=== PATIENT | male | born 1985 | race Caucasian/White ===

== ENCOUNTER 2023-11-27 10:19 | Inpatient (IN) ==
[2023-11-27] MEDS: SODIUM CHLORIDE 0.9% 1,000 ML IV ONE (11:00)
[2023-11-27] MEDS: METOCLOPRAMIDE HCL INJ 5 MG/ML 2 ML VIAL IV ONE (11:14)
[2023-11-27] MEDS: diazePAM 5 MG/ML 10ML VIAL IV STA ×3 (11:14→15:22)
[2023-11-27 11:23] LABS: Basophils # (auto) 0.01 K/uL (0.00-0.20); Basophils % (auto) 0.1 %; Eosinophils # (auto) 0.05 K/uL (0.00-0.50); Eosinophils % (auto) 0.4 %; Hemoglobin 13.3 g/dl (14.0-18.0); Immature Granulocytes # (auto) 0.04 K/uL (0.01-0.20); Immature Granulocytes % (auto) 0.3 %; Lymphocytes # (auto) 1.04 K/uL (1.20-3.40); Mean Corpuscular Hemoglobin 27.1 pg (25.0-34.0); Mean Corpuscular Hgb Conc 34.1 g/dL (32.0-36.0); Mean Corpuscular Volume 79.4 fL (80.0-100.0); Mean Platelet Volume 9.4 fL (9.4-12.4); Monocytes # (auto) 0.54 K/uL (0.11-0.59); Monocytes % (auto) 4.2 %; Neutrophils # (auto) 11.26 K/uL (1.40-6.50); Platelet Count 448 K/uL (130-400); RDW Coefficient of Variation 13.4 % (11.5-14.5); RDW Standard Deviation 38.4 fL (36.4-46.3); Red Blood Count 4.91 M/uL (4.70-6.10); White Blood Count 12.94 K/ul (4.8-10.8)
--- NOTE | 2023-11-27 11:31 | Emergency Department Note ---
Impression & Plan Alcohol withdrawal syndrome, Alcohol abuse, Substance abuse, Opiate withdrawal, Urine retention, Hypokalemia, Acute GI bleeding ED Provider Note ED Provider Note NAME: EUGENIO [id number] JORDANA AGE:38 SEX: Male : 1985 ARRIVES VIA: EMS INFORMANT: Patient ED PROVIDER(s): Deborah Bettencourt DO CHIEF COMPLAINT: alcohol withdrawal HPI: This is a 38-year-old male brought in from a local correctional facility due to concern for evolving symptoms of alcohol withdrawal and opiate withdrawal. Patient states he drinks about 1/5 of vodka daily and has been doing so for the last 3 months. He also uses approximately 16 bags of fentanyl daily which she has also been doing for the last 3 months. He says overall he has been abusing alcohol and other recreational drugs for many years. He states he had previously made arrangements to go to drug and alcohol rehab tomorrow, however he was picked up from his home by police due to other legal matters yesterday. He states his last drink of alcohol last use of fentanyl was yesterday around 1:30 PM. He states by about 430 to 5 PM he began having withdrawal related symptoms including sweating, weakness, nausea and vomiting. Patient states throughout the evening he began to feel worse. He had recurrent episodes of vomiting which did include blood. He states he has noticed dark stools which she is suspicious of blood additionally. No prior history of known GI bleed, he denies any prior EGD or colonoscopy. He denies fevers or chills. He states he does have abdominal pain and feels shaky. He states he has previously been hospitalized for alcohol withdrawal and has had alcohol withdrawal related seizures. He states the facility gave him 5 mg of Valium, Zofran, and something else for his nausea and vomiting. He states he does not have to use a daily acid reducing stomach medication and has no known history of PUD. PAST MEDICAL HISTORY:See Below PAST SURGICAL HISTORY:See Below FAMILY HISTORY:See Below SOCIAL HISTORY:See Below HOME MEDICATIONS:See Below ALLERGIES:See Below VITALS:See Below PHYSICAL EXAMINATION: GENERAL: alert, ill appearing, thin body habitus, moderate distress, diaphoretic and anxious appearing EYE EXAM: normal conjunctiva, PERRL and EOM's grossly intact OROPHARYNX: no exudate, no erythema, lips, buccal mucosa, and tongue normal and mucous membranes are dry NECK: supple, no nuchal rigidity, no adenopathy, non-tender LUNGS: Clear to auscultation. Normal chest wall mechanics, no w/r/r HEART: no murmurs, S1 normal and S2 normal ABDOMEN: abdomen soft, generalized abdominal discomfort with palpation, normo- active bowel sounds, no masses, no rebound or guarding. BACK: Back is symmetrical on inspection and there is no deformity, no midline tenderness, no CVA tenderness. SKIN: no rashes, petechiae, orbruising UPPER EXTREMITIES: upper extremities are grossly normal. FROM, nml pulses b/l. LOWER EXTREMITIES: No pitting edema. FROM, nml pulses b/l. NEURO EXAM: Normal sensorium, cranial nerves II-XII grossly intact, normal speech, no facial droop,nogross weakness of arms, no gross weakness of legs. Gross sensation intact. No ataxia. Tremors noted. Vital Signs: reviewed and remarkable Differential Diagnosis: Alcohol withdrawal, opiate withdrawal, delirium tremens, dehydration, electrolyte abnormality, dysrhythmia, GI bleed, colitis, viral syndrome, perforation, mesenteric ischemia, pneumonia, aspiration, as well as others were considered MEDICAL DECISION MAKING: This is a 38-year-old male presents emergency department with staff from correctional facility due to concern for evolving alcohol and opiate withdrawal but was unable to be managed by staff there following several medications. Patient admits to prior significant history of alcohol withdrawal requiring hospitalization including prior seizures. He was noted to be tachycardic on arrival and ill-appearing with significant diaphoresis and tremors. Labs drawn and sent, IV established, EKG and chest ray performed at bedside interpreted me and patient monitored on telemetry. Patient started on IV fluids as he did appear clinically dehydrated and reported vomiting for the last 24 hours. Patient started on Protonix bolus and drip due to reported hematemesis, and increased risk given alcohol abuse. Type and screen added as a precaution. Patient given IV magnesium due to prolonged QTc noted on the EKG. Banana bag was added. Patient given 10 mg IV Valium to help with withdrawal symptoms, as well as IV Rocephin as a precaution. Patient given IV Reglan and IV Tylenol additionally for ongoing nausea and pain. Patient sent for CT of the abdomen and pelvis as a precaution. Patient transition to lactated Ringer's following first bag of normal saline. Patient did have an episode of diarrhea here which was sent for stool culture and C. difficile. Patient required additional IV Valium totaling 30 mg. Patient had been unable to provide urine specimen yet despite IV fluids. Bladder scan showed greater than 500 mL. Saldana catheter placed and urinalysis sent. Due to persistent symptoms of alcohol withdrawal, concern for GI bleed and dehydration, and risks associated with alcohol withdrawal and opiate withdrawal, case discussed with the hospitalist team for additional evaluation and management. Consultation(s): 1445: Discussed with Dr. Covarrubias, [facility] hospitalist team, for additional evaluation and management. ER Treatment Provided: See below Diagnostics Interpreted By Me: -ECG: Normal sinus at 83, normal axis, normal QRS, prolonged QTc, nonspecific ST/T wave changes -Cardiac Monitoring: An order was placed for continuous cardiac monitoring. The monitor shows a rate of 102 with sinus tachycardia rhythm. -Laboratory studies: As stated above and show below. -Imaging studies: X-ray Chest: A single view study of the chest was reviewed and was negative for cardiomegaly, focal infiltrate, effusion, pulmonary edema, or wide mediastinum. Triage Nursing Note Reviewed Prior/Outside Records Reviewed Critical Care: Critical care of 56 min performed to assess and manage high likelihood of life- threatening alcohol withdrawal and opiate withdrawal, involving labs and imaging performed with assessment to evaluate alcohol and opiate withdrawal diagnosis with frequent reassessment. This time includes bedside time, treatment discussions with patient/family/consultants, documentation time and excludes procedure time. Past Med/Surg History Problem List (Updated 11/28/23 @ 15:30 by Deborah Bettencourt, ) Acute GI bleeding (Acute) Hypokalemia (Acute) Urine retention (Acute) Hematemesis Opiate withdrawal (Acute) Substance abuse (Acute) Alcohol abuse (Acute) Alcohol withdrawal syndrome (Acute) Medical History Depression (01/22/12) Surgical History Hx of cervical spine surgery Social History Smoking Status: Never smoker Hx Alcohol Use: Yes Hx Substance Use: Yes Substance Use Type Other:: FENTANYL Preferred Language: Kittitian Communication Ability: Effective Cake Stripper Required: No Beliefs That Will Affect Care: None Current Living Situation Comment: [facility] Feels Safe at Home: Yes Safety Concerns: Feels Safe At This Time Assistive Devices: None Allergies Allergies Allergy/AdvReac Type Severity Reaction Status Date / Time Sulfa (Sulfonamide Allergy Unknown Verified 02/16/23 08:35 Antibiotics) Home Meds Home Medications Medication Instructions Recorded Confirmed clonazepam 2 mg tablet See Rx Instructions .Route .COMPLEX 11/27/23 11/27/23 clonidine HCl 0.1 mg tablet See Rx Instructions .Route .COMPLEX 11/27/23 11/27/23 folic acid 1 mg tablet 1 mg PO DAILY 11/27/23 11/27/23 loperamide 2 mg capsule 2 mg PO TID PRN Diarrhea 11/27/23 11/27/23 magnesium oxide 400 mg PO DAILY 11/27/23 11/27/23 mirtazapine 15 mg tablet 0 mg PO HS 11/27/23 11/27/23 multivitamin 1 tab PO DAILY 11/27/23 11/27/23 ondansetron 4 mg disintegrating 4 mg translingual TID PRN Nausea 11/27/23 11/27/23 tablet And Vomiting ondansetron HCl (PF) 4 mg/2 mL 4 mg IV TID PRN Nausea And Vomiting 11/27/23 11/27/23 injection solution vitamin B complex 1 tab PO DAILY 11/27/23 11/27/23 Results & Data (ED) Vital Signs Vital Signs - 24 hr 11/27/23 10:28 11/27/23 10:32 11/27/23 11:54 Temperature 37 C Temperature Source Oral Pulse Rate 88 86 103 H Pulse Rate from SpO2 Sensor 102 H Respiratory Rate 20 30 H Respiratory Effort / Characteristics Non-Labored Spontaneous Respiratory Depth Normal Blood Pressure 153/89 H Blood Pressure Mean 110 Blood Pressure Position Sitting Pulse Oximetry 100 98 Oxygen Delivery Method Room Air Sepsis Recent Fever Within 48 Hours No Sepsis New/Unexplained Change in Mental Status No Sepsis Action Taken by Nursing No Action Required 11/27/23 12:00 11/27/23 12:54 11/27/23 13:00 Temperature Temperature Source Pulse Rate 112 H Pulse Rate from SpO2 Sensor 104 H Respiratory Rate 33 H Respiratory Effort / Characteristics Respiratory Depth Blood Pressure 159/82 H 152/82 H Blood Pressure Mean 114 97 Blood Pressure Position Pulse Oximetry 97 Oxygen Delivery Method Sepsis Recent Fever Within 48 Hours Sepsis New/Unexplained Change in Mental Status Sepsis Action Taken by Nursing 11/27/23 14:00 11/27/23 14:28 Temperature 39.6 C H Temperature Source Oral Pulse Rate 95 H Pulse Rate from SpO2 Sensor Respiratory Rate Respiratory Effort / Characteristics Respiratory Depth Blood Pressure Blood Pressure Mean Blood Pressure Position Pulse Oximetry Oxygen Delivery Method Sepsis Recent Fever Within 48 Hours Sepsis New/Unexplained Change in Mental Status Sepsis Action Taken by Nursing Laboratory Data 11/28/23 06:39 11/28/23 06:39 Lab Results 11/27/23 11/27/23 11/27/23 Range/Units 10:35 12:05 12:07 WBC 12.94 H (4.8-10.8) K/ul RBC 4.91 (4.70-6.10) M/uL Hgb 13.3 L (14.0-18.0) g/dl Hct 39.0 L (42.0-52.0) % MCV 79.4 L (80.0-100.0) fL MCH 27.1 (25.0-34.0) pg MCHC 34.1 (32.0-36.0) g/dL RDW Std Deviation 38.4 (36.4-46.3) fL RDW Coeff of Casey 13.4 (11.5-14.5) % Plt Count 448 H (130-400) K/uL MPV 9.4 (9.4-12.4) fL Immature Gran % (Auto) 0.3 % Neut % (Auto) 87.0 % Lymph % (Auto) 8.0 % [place] % (Auto) 4.2 % Eos % (Auto) 0.4 % Baso % (Auto) 0.1 % Neut # (Auto) 11.26 H (1.40-6.50) K/uL Lymph # (Auto) 1.04 L (1.20-3.40) K/uL [place] # (Auto) 0.54 (0.11-0.59) K/uL Eos # (Auto) 0.05 (0.00-0.50) K/uL Baso # (Auto) 0.01 (0.00-0.20) K/uL Immature Gran # (Auto) 0.04 (0.01-0.20) K/uL PT 12.0 (9.0-12.0) Seconds INR 1.1 (0.9-1.1) Sodium 146 H (136-145) mmol/L Potassium 2.9 L (3.5-5.1) mmol/L Chloride 104 (98-107) mmol/L Carbon Dioxide 24 (21-32) mmol/L Anion Gap 18 H (3-11) BUN 14 (6-23) mg/dl Creatinine 0.88 (0.6-1.4) mg/dl Est Cr Clr Drug Dosing 100.1 ml/min Est GFR ( Amer) 126.3 ml/min Est GFR (Non-Af Amer) 109.0 ml/min BUN/Creatinine Ratio 15.9 (10-20) Glucose 149 H (70-99(Fasting)) mg/dl Calcium 10.3 (8.6-10.3) mg/dl Magnesium 2.0 (1.7-2.4) mg/dl Total Bilirubin 0.8 (0.2-1.0) mg/dl AST 19 (13-39) U/L ALT 47 (7-52) U/L Alkaline Phosphatase 62 (34-104) U/L Troponin I High Sens 42.7 H (0-20) pg/ml Total Protein 8.1 (6.0-8.3) gm/dl Albumin 4.9 (3.4-5.0) gm/dl Globulin 3.2 (2.5-4.0) gm/dl Albumin/Globulin Ratio 1.5 (0.9-2) Lipase 52 (11-82) U/L Procalcitonin 0.02 (0-0.5) ng/ml TSH 0.286 L (0.300-4.500) uIu/ml Free T4 1.26 (0.61-1.60) ng/dl Urine Color Urine Appearance (Clear) Urine pH (4.5-7.5) Ur Specific [place] (1.000-1.030) Urine Protein (Negative) Urine Glucose (UA) (Negative) Urine Ketones (Negative) Urine Blood (Negative) Urine Nitrite (Negative) Urine Bilirubin (Negative) Urine Urobilinogen (Negative) Ur Leukocyte Esterase (Negative) Urine WBC (Auto) (0-5) /hpf Urine RBC (Auto) (0-2) /hpf U Hyaline Cast (Auto) (0-2) /lpf U Epithel Cells (Auto) (0-2) /hpf Urine Bacteria (Auto) (None Seen) Stl C. diff Tox B Gene (Neg) Urine Opiates Screen (Neg) Ur Methadone, Qual (Neg) Urine Fentanyl Screen (Neg) Urine Barbiturates (Neg) Ur Phencyclidine (PCP) (Neg) U Amphetamin/Meth Scrn (Neg) MDMA (Ecstasy) Screen (Neg) U Benzodiazepines Scrn (Neg) Ur Cocaine Metabolite (Neg) U Marijuana (THC) Screen (Neg) Ethyl Alcohol mg/dL < 10.0 (<10.0) mg/dl SARS-CoV-2 (PCR) (Negative) Influenza Type A (PCR) (Neg) Influenza Type B (PCR) (Neg) RSV (RT-PCR) (Neg) Staphylococcus sp PCR (NotDetected) mecA/C-Methicil Resis Gene (NotDetected) Staph epidermidis (PCR) (NotDetected) Bld Cult ID Panel PCR (NotDetected) Blood Type A Positive Antibody Screen NEGATIVE 11/27/23 11/27/23 11/27/23 Range/Units 12:35 14:12 14:42 WBC (4.8-10.8) K/ul RBC (4.70-6.10) M/uL Hgb (14.0-18.0) g/dl Hct (42.0-52.0) % MCV (80.0-100.0) fL MCH (25.0-34.0) pg MCHC (32.0-36.0) g/dL RDW Std Deviation (36.4-46.3) fL RDW Coeff of Casey (11.5-14.5) % Plt Count (130-400) K/uL MPV (9.4-12.4) fL Immature Gran % (Auto) % Neut % (Auto) % Lymph % (Auto) % [place] % (Auto) % Eos % (Auto) % Baso % (Auto) % Neut # (Auto) (1.40-6.50) K/uL Lymph # (Auto) (1.20-3.40) K/uL [place] # (Auto) (0.11-0.59) K/uL Eos # (Auto) (0.00-0.50) K/uL Baso # (Auto) (0.00-0.20) K/uL Immature Gran # (Auto) (0.01-0.20) K/uL PT (9.0-12.0) Seconds INR (0.9-1.1) Sodium (136-145) mmol/L Potassium (3.5-5.1) mmol/L Chloride (98-107) mmol/L Carbon Dioxide (21-32) mmol/L Anion Gap (3-11) BUN (6-23) mg/dl Creatinine (0.6-1.4) mg/dl Est Cr Clr Drug Dosing ml/min Est GFR ( Amer) ml/min Est GFR (Non-Af Amer) ml/min BUN/Creatinine Ratio (10-20) Glucose (70-99(Fasting)) mg/dl Calcium (8.6-10.3) mg/dl Magnesium (1.7-2.4) mg/dl Total Bilirubin (0.2-1.0) mg/dl AST (13-39) U/L ALT (7-52) U/L Alkaline Phosphatase (34-104) U/L Troponin I High Sens (0-20) pg/ml Total Protein (6.0-8.3) gm/dl Albumin (3.4-5.0) gm/dl Globulin (2.5-4.0) gm/dl Albumin/Globulin Ratio (0.9-2) Lipase (11-82) U/L Procalcitonin (0-0.5) ng/ml TSH (0.300-4.500) uIu/ml Free T4 (0.61-1.60) ng/dl Urine Color Yellow Urine Appearance Clear (Clear) Urine pH 5.5 (4.5-7.5) Ur Specific [place] 1.037 H (1.000-1.030) Urine Protein Trace H (Negative) Urine Glucose (UA) Negative (Negative) Urine Ketones 4+ H (Negative) Urine Blood Negative (Negative) Urine Nitrite Negative (Negative) Urine Bilirubin Negative (Negative) Urine Urobilinogen Negative (Negative) Ur Leukocyte Esterase Negative (Negative) Urine WBC (Auto) 0-5 (0-5) /hpf Urine RBC (Auto) 0-2 (0-2) /hpf U Hyaline Cast (Auto) 11-20 H (0-2) /lpf U Epithel Cells (Auto) 0-2 (0-2) /hpf Urine Bacteria (Auto) None Seen (None Seen) Stl C. diff Tox B Gene Negative Cdiff Gene (Neg) Urine Opiates Screen Neg (Neg) Ur Methadone, Qual Neg (Neg) Urine Fentanyl Screen Pos H (Neg) Urine Barbiturates Neg (Neg) Ur Phencyclidine (PCP) Neg (Neg) U Amphetamin/Meth Scrn Neg (Neg) MDMA (Ecstasy) Screen Neg (Neg) U Benzodiazepines Scrn Pos H (Neg) Ur Cocaine Metabolite Neg (Neg) U Marijuana (THC) Screen Pos H (Neg) Ethyl Alcohol mg/dL (<10.0) mg/dl SARS-CoV-2 (PCR) NEGATIVE (Negative) Influenza Type A (PCR) Negative (Neg) Influenza Type B (PCR) Negative (Neg) RSV (RT-PCR) Negative (Neg) Staphylococcus sp PCR (NotDetected) mecA/C-Methicil Resis Gene (NotDetected) Staph epidermidis (PCR) (NotDetected) Bld Cult ID Panel PCR (NotDetected) Blood Type Antibody Screen 11/27/23 Range/Units 14:50 WBC (4.8-10.8) K/ul RBC (4.70-6.10) M/uL Hgb (14.0-18.0) g/dl Hct (42.0-52.0) % MCV (80.0-100.0) fL MCH (25.0-34.0) pg MCHC (32.0-36.0) g/dL RDW Std Deviation (36.4-46.3) fL RDW Coeff of Casey (11.5-14.5) % Plt Count (130-400) K/uL MPV (9.4-12.4) fL Immature Gran % (Auto) % Neut % (Auto) % Lymph % (Auto) % [place] % (Auto) % Eos % (Auto) % Baso % (Auto) % Neut # (Auto) (1.40-6.50) K/uL Lymph # (Auto) (1.20-3.40) K/uL [place] # (Auto) (0.11-0.59) K/uL Eos # (Auto) (0.00-0.50) K/uL Baso # (Auto) (0.00-0.20) K/uL Immature Gran # (Auto) (0.01-0.20) K/uL PT (9.0-12.0) Seconds INR (0.9-1.1) Sodium (136-145) mmol/L Potassium (3.5-5.1) mmol/L Chloride (98-107) mmol/L Carbon Dioxide (21-32) mmol/L Anion Gap (3-11) BUN (6-23) mg/dl Creatinine (0.6-1.4) mg/dl Est Cr Clr Drug Dosing ml/min Est GFR ( Amer) ml/min Est GFR (Non-Af Amer) ml/min BUN/Creatinine Ratio (10-20) Glucose (70-99(Fasting)) mg/dl Calcium (8.6-10.3) mg/dl Magnesium (1.7-2.4) mg/dl Total Bilirubin (0.2-1.0) mg/dl AST (13-39) U/L ALT (7-52) U/L Alkaline Phosphatase (34-104) U/L Troponin I High Sens (0-20) pg/ml Total Protein (6.0-8.3) gm/dl Albumin (3.4-5.0) gm/dl Globulin (2.5-4.0) gm/dl Albumin/Globulin Ratio (0.9-2) Lipase (11-82) U/L Procalcitonin (0-0.5) ng/ml TSH (0.300-4.500) uIu/ml Free T4 (0.61-1.60) ng/dl Urine Color Urine Appearance (Clear) Urine pH (4.5-7.5) Ur Specific [place] (1.000-1.030) Urine Protein (Negative) Urine Glucose (UA) (Negative) Urine Ketones (Negative) Urine Blood (Negative) Urine Nitrite (Negative) Urine Bilirubin (Negative) Urine Urobilinogen (Negative) Ur Leukocyte Esterase (Negative) Urine WBC (Auto) (0-5) /hpf Urine RBC (Auto) (0-2) /hpf U Hyaline Cast (Auto) (0-2) /lpf U Epithel Cells (Auto) (0-2) /hpf Urine Bacteria (Auto) (None Seen) Stl C. diff Tox B Gene (Neg) Urine Opiates Screen (Neg) Ur Methadone, Qual (Neg) Urine Fentanyl Screen (Neg) Urine Barbiturates (Neg) Ur Phencyclidine (PCP) (Neg) U Amphetamin/Meth Scrn (Neg) MDMA (Ecstasy) Screen (Neg) U Benzodiazepines Scrn (Neg) Ur Cocaine Metabolite (Neg) U Marijuana (THC) Screen (Neg) Ethyl Alcohol mg/dL (<10.0) mg/dl SARS-CoV-2 (PCR) (Negative) Influenza Type A (PCR) (Neg) Influenza Type B (PCR) (Neg) RSV (RT-PCR) (Neg) Staphylococcus sp PCR DETECTED A (NotDetected) mecA/C-Methicil Resis Gene DETECTED A (NotDetected) Staph epidermidis (PCR) DETECTED A (NotDetected) Bld Cult ID Panel PCR See PCR Comment (NotDetected) Blood Type Antibody Screen Administered Medications Clonidine HCl (Clonidine Hcl 0.1 Mg Tab) 0.1 mg PO TID DAVID; Taper Stop: 12/03/23 23:59 Last Admin: 11/28/23 14:41 Dose: 0.1 mg Documented By: Admin: 11/28/23 09:45 Dose: 0.1 mg Documented By: Admin: 11/27/23 21:08 Dose: Not Given Documented By: MORALES Folic Acid (Folic Acid 1 Mg Tab) 1 mg PO DAILY [facility] Stop: 12/28/23 08:59 Last Admin: 11/28/23 09:45 Dose: 1 mg Documented By: BILL Pantoprazole Sodium 40 mg/ (Dextrose) 100 mls @ 20 mls/hr IV Q5H [facility] Stop: 12/27/23 11:29 Last Admin: 11/28/23 11:29 Dose: 8 mg/hr, 20 mls/hr Documented By: Infusion: 11/28/23 11:04 Dose: Infused Documented By: Admin: 11/28/23 06:04 Dose: 8 mg/hr, 20 mls/hr Documented By: Infusion: 11/28/23 06:04 Dose: Infused Documented By: Admin: 11/28/23 01:26 Dose: 8 mg/hr, 20 mls/hr Documented By: Infusion: 11/28/23 01:26 Dose: Infused Documented By: Admin: 11/27/23 20:11 Dose: 8 mg/hr, 20 mls/hr Documented By: Infusion: 11/27/23 20:11 Dose: Infused Documented By: Admin: 11/27/23 16:36 Dose: 8 mg/hr, 20 mls/hr Documented By: Infusion: 11/27/23 16:36 Dose: Infused Documented By: Admin: 11/27/23 12:51 Dose: 8 mg/hr, 20 mls/hr Documented By: OLEG Thiamine HCl 100 mg/ Syringe 10 mls @ 2 mls/min IV QAM DAVID Stop: 12/28/23 08:59 Last Admin: 11/28/23 08:49 Dose: 2 mls/min Documented By: BILL Folic Acid 1 mg/ Syringe 10 mls @ 5 mls/min IV QAM DAVID Stop: 12/27/23 15:29 Last Admin: 11/28/23 10:04 Dose: 5 mls/min Documented By: Admin: 11/27/23 15:50 Dose: 5 mls/min Documented By: OLEG Potassium Chloride 40 meq/ (Dextrose/Sodium Chloride) 1,020 mls @ 125 mls/hr IV .Q8H10M DAVID Stop: 12/27/23 22:29 Last Infusion: 11/28/23 12:55 Dose: 125 mls/hr Documented By: Infusion: 11/28/23 08:46 Dose: 0 mls/hr Documented By: Admin: 11/28/23 07:31 Dose: 125 mls/hr Documented By: Infusion: 11/28/23 07:23 Dose: Infused Documented By: Admin: 11/27/23 23:13 Dose: 125 mls/hr Documented By: MORALES Lorazepam (Lorazepam 2 Mg/1 Ml Vial) 1 mg IV UD PRN; Protocol PRN Reason: EtOH Withdrawal AWSS Score 6,7 Stop: 12/27/23 15:00 Last Admin: 11/28/23 12:31 Dose: 1 mg Documented By: Admin: 11/28/23 10:04 Dose: 1 mg Documented By: Admin: 11/28/23 07:40 Dose: 1 mg Documented By: Admin: 11/28/23 01:10 Dose: 1 mg Documented By: Admin: 11/27/23 21:29 Dose: 1 mg Documented By: MORALES Lorazepam (Lorazepam 2 Mg/1 Ml Vial) 2 mg IV UD PRN; Protocol PRN Reason: EtOH Withdrawal AWSS Score 8,9 Stop: 12/27/23 15:00 Last Admin: 11/27/23 23:59 Dose: 2 mg Documented By: Admin: 11/27/23 16:36 Dose: 2 mg Documented By: OLEG Magnesium Oxide (Magnesium Oxide 400 Mg Tab) 400 mg PO DAILY DAVID Stop: 12/28/23 08:59 Last Admin: 11/28/23 09:46 Dose: 400 mg Documented By: BILL Mirtazapine (Mirtazapine Tab 15 Mg Tab) 15 mg PO [facility] Stop: 12/27/23 20:59 Last Admin: 11/27/23 21:08 Dose: Not Given Documented By: MORALES Vitamin B Complex (Vitamin B Complex Tab) 1 tab PO DAILY DAVID Stop: 12/28/23 08:59 Last Admin: 11/28/23 09:46 Dose: 1 tab Documented By: BILL Discontinued Medications Buprenorphine HCl (Buprenorphine Hcl 2 Mg Subl) 4 mg SL ONE STA Stop: 11/27/23 15:52 Last Admin: 11/27/23 16:39 Dose: Not Given Documented By: OLEG Buprenorphine/Naloxone (Buprenorphine/Naloxone 2/0.5mg Tab) 2 tab PO ONE STA Stop: 11/27/23 16:03 Last Admin: 11/27/23 16:36 Dose: 2 tab Documented By: OLEG Buprenorphine/Naloxone (Buprenorphine/Naloxone 2/0.5mg Tab) 1 tab PO ONE STA Stop: 11/27/23 18:28 Last Admin: 11/27/23 19:55 Dose: 1 tab Documented By: MORALES Buprenorphine/Naloxone (Buprenorphine/Naloxone 2/0.5mg Tab) 2 tab PO ONE ONE Stop: 11/28/23 14:01 Last Admin: 11/28/23 13:36 Dose: 2 tab Documented By: BILL Chlordiazepoxide HCl (Chlordiazepoxide Alcohol Withdrawl 50mg) 1 each PO NOW STA; Protocol Stop: 11/27/23 15:02 Last Admin: 11/27/23 16:39 Dose: Not Given Documented By: OLEG Chlordiazepoxide HCl (Chlordiazepoxide Hcl 25 Mg Cap) 50 mg PO 0600,1200,1600,2200 DAVID Stop: 11/28/23 12:01 Last Admin: 11/27/23 15:51 Dose: 50 mg Documented By: LOEG Diazepam (Diazepam 5 Mg/Ml 10ml Vial) 10 mg IV NOW STA Stop: 11/27/23 11:04 Last Admin: 11/27/23 11:14 Dose: 10 mg Documented By: RAMYA Diazepam (Diazepam 5 Mg/Ml 10ml Vial) 10 mg IV NOW STA Stop: 11/27/23 12:32 Last Admin: 11/27/23 12:51 Dose: 10 mg Documented By: OLEG Diazepam (Diazepam 5 Mg/Ml 10ml Vial) 10 mg IV NOW STA Stop: 11/27/23 14:16 Last Admin: 11/27/23 15:22 Dose: 10 mg Documented By: OLEG Sodium Chloride (Nss) 1,000 mls @ 999 mls/hr IV .Q1H1M ONE Stop: 11/27/23 12:03 Last Infusion: 11/27/23 11:39 Dose: Infused Documented By: Admin: 11/27/23 11:00 Dose: 999 mls/hr Documented By: RAMYA Multivitamins 10 ml/ Thiamine HCl 100 mg/ Folic Acid 1 mg/Sodium Chloride 1,011.2 mls @ 250 mls/hr IV .Q4H3M ONE Stop: 11/27/23 15:05 Last Infusion: 11/27/23 20:37 Dose: Infused Documented By: Admin: 11/27/23 12:11 Dose: 250 mls/hr Documented By: RAMYA Pantoprazole Sodium 80 mg/ (Dextrose) 120 mls @ 480 mls/hr IV NOW ONE Stop: 11/27/23 11:17 Last Infusion: 11/27/23 12:45 Dose: Infused Documented By: Admin: 11/27/23 12:30 Dose: 480 mls/hr Documented By: RAMYA Magnesium Sulfate/Dextrose (Magnesium Sulfate / D5w) 1 gm in 100 mls @ 100 mls/hr IV Q1H DAVID Stop: 11/27/23 13:05 Last Infusion: 11/27/23 12:30 Dose: Infused Documented By: Admin: 11/27/23 11:38 Dose: 100 mls/hr Documented By: Infusion: 11/27/23 11:38 Dose: Infused Documented By: Admin: 11/27/23 11:38 Dose: 100 mls/hr Documented By: OLEG Ceftriaxone Sodium (Rocephin) 2,000 mg in 50 mls @ 100 mls/hr IV NOW STA Stop: 11/27/23 11:34 Last Infusion: 11/27/23 15:15 Dose: Infused Documented By: Admin: 11/27/23 14:45 Dose: 100 mls/hr Documented By: OLEG Lactated Ringer's (Lr) 1,000 mls @ 999 mls/hr IV .Q1H1M ONE Stop: 11/27/23 13:31 Last Infusion: 11/27/23 14:04 Dose: Infused Documented By: Admin: 11/27/23 13:03 Dose: 999 mls/hr Documented By: OLEG Acetaminophen (Ofirmev) 1,000 mg in 100 mls @ 400 mls/hr IV NOW STA Stop: 11/27/23 14:22 Last Infusion: 11/27/23 14:59 Dose: Infused Documented By: Admin: 11/27/23 14:44 Dose: 400 mls/hr Documented By: OLEG Lactated Ringer's (Lr) 1,000 mls @ 125 mls/hr IV .Q8H DAVID Stop: 12/27/23 15:44 Last Infusion: 11/27/23 18:53 Dose: Infused Documented By: Admin: 11/27/23 15:53 Dose: 125 mls/hr Documented By: OLEG Potassium Chloride (K James / Wtr) 10 meq in 100 mls @ 100 mls/hr IV Q1H DAVID Stop: 11/27/23 22:59 Last Infusion: 11/27/23 23:38 Dose: Infused Documented By: Admin: 11/27/23 22:17 Dose: 100 mls/hr Documented By: Infusion: 11/27/23 22:16 Dose: Infused Documented By: Admin: 11/27/23 21:02 Dose: 100 mls/hr Documented By: Infusion: 11/27/23 20:56 Dose: Infused Documented By: Admin: 11/27/23 19:56 Dose: 100 mls/hr Documented By: Infusion: 11/27/23 19:55 Dose: Infused Documented By: Admin: 11/27/23 18:36 Dose: 100 mls/hr Documented By: CHARI Acetaminophen (Ofirmev) 1,000 mg in 100 mls @ 400 mls/hr IV NOW STA Stop: 11/28/23 03:48 Last Infusion: 11/28/23 04:14 Dose: Infused Documented By: Admin: 11/28/23 03:47 Dose: 400 mls/hr Documented By: MORALES Ceftriaxone Sodium (Rocephin) 2,000 mg in 50 mls @ 100 mls/hr IV Q24H DAVID Stop: 12/12/23 13:59 Last Infusion: 11/28/23 14:07 Dose: Infused Documented By: Admin: 11/28/23 13:36 Dose: 100 mls/hr Documented By: BILL Potassium Chloride (K James / Wtr) 10 meq in 100 mls @ 100 mls/hr IV Q1H DAVID Stop: 11/28/23 12:29 Last Infusion: 11/28/23 12:50 Dose: Infused Documented By: Admin: 11/28/23 11:47 Dose: 100 mls/hr Documented By: Infusion: 11/28/23 11:45 Dose: Infused Documented By: Admin: 11/28/23 10:45 Dose: 100 mls/hr Documented By: Infusion: 11/28/23 10:45 Dose: Infused Documented By: Admin: 11/28/23 09:46 Dose: 100 mls/hr Documented By: Infusion: 11/28/23 09:46 Dose: Infused Documented By: Admin: 11/28/23 08:46 Dose: 100 mls/hr Documented By: BILL Ioversol (Optiray 320 100ml) 92 ml IV ONCE ONE Stop: 11/27/23 13:34 Last Admin: 11/27/23 13:33 Dose: 92 ml Documented By: DALTON Lorazepam (Lorazepam 2 Mg/1 Ml Vial) 3 mg IV ONCE PRN; Protocol PRN Reason: EtOH Withdrawal AWSS Score 10+ Last Admin: 11/27/23 18:37 Dose: 3 mg Documented By: CHARI Lorazepam (Lorazepam 2 Mg/1 Ml Vial) 2 mg IV NOW STA Stop: 11/27/23 20:38 Last Admin: 11/27/23 20:51 Dose: 2 mg Documented By: MORALES Metoclopramide HCl (Metoclopramide Hcl Inj 5 Mg/Ml 2 Ml Vial) 5 mg IV ONE ONE Stop: 11/27/23 11:04 Last Admin: 11/27/23 11:14 Dose: 5 mg Documented By: RAMYA Pantoprazole Sodium (Pantoprazole Bolus/Drip) 1 each IV NOW STA Stop: 11/27/23 11:04 Last Admin: 11/27/23 13:10 Dose: Not Given Documented By: OLEG Potassium Chloride (Potassium Chloride Crtab 20 Meq Tabcr) 40 meq PO NOW STA Stop: 11/28/23 07:48 Last Admin: 11/28/23 09:35 Dose: Not Given Documented By: BILL Imaging Data Radiologist's Impression: Chest X-Ray 11/27/23 11:04 XR chest 1V portable CLINICAL HISTORY: Shortness of breath. COMPARISON STUDY: Chest radiograph November 07, 2022. FINDINGS: Postoperative findings within the cervical spine are incidentally noted. Lung volumes are normal. Lungs are clear. There is no pneumothorax or pleural effusion. Cardiac size is normal. Mediastinal contours are normal. There is no evidence for pulmonary edema. IMPRESSION: No acute cardiopulmonary findings. ACT 112: Negative or not required by law. Electronically signed by: Diego Conn M.D. 11/27/2023 11:54 AM Abdomen/Pelvis CT 11/27/23 13:15 CT OF THE ABDOMEN AND PELVIS WITH CONTRAST CLINICAL HISTORY: Abdominal pain. Hematemesis. COMPARISON STUDY: CT of the abdomen and pelvis December 14, [id number]. TECHNIQUE: Following IV administration of 92 mL of Optiray, axial images of the abdomen and pelvis were obtained from the lung bases to the proximal femurs. Images were reviewed in the axial, sagittal, and coronal planes. IV contrast was administered without complication. Automated exposure control was utilized for the study. A dose lowering technique was utilized adhering to the principles of ALARA. CT DOSE: 467.8 mGy.cm FINDINGS: Lung bases are unremarkable. No pneumatosis, free air or portal venous gas is present. Subcentimeter right hepatic lobe lesion is likely benign. There are no suspicious hepatic lesions. The spleen, adrenal glands, left kidney and pancreas are normal. There is no biliary or pancreatic ductal dilatation. There is no peripancreatic or pericholecystic infiltration. There is a 3 mm right renal calculus. There are no ureteral calculi. There is no hydronephrosis. The appendix is normal. There is no free fluid. The proximal jejunum is slightly dilated and fluid-filled. No transition point is identified. No bowel wall thickening. The stomach is also mildly fluid-filled. IMPRESSION: 1. Normal appendix. No bowel obstruction. No bowel wall thickening. 2. Mildly dilated fluid-filled jejunal and fluid-filled stomach. The findings could represent gastroenteritis. 3. 3 mm right renal calculus. No ureteral calculi. No hydronephrosis. ACT 112: Negative or not required by law. Electronically signed by: Diego Conn M.D. 11/27/2023 1:49 PM Discharge Plan Visit Data Chief Complaint: Alcohol Withdrawal Stated Complaint: DETOXING ED Provider: Deborah Bettencourt Discharge Problem: Alcohol withdrawal syndrome, Alcohol abuse, Substance abuse, Opiate withdrawal, Urine retention, Hypokalemia, Acute GI bleeding Patient Disposition: Admitted As Inpatient Discharge Instructions Interventions: ED Discharge Assessment Last Done: 11/27/23 17:24
[2023-11-27] MEDS: MAGNESIUM SULFATE / D5W 1 GM/100 ML BAG IV SCH (11:38)
[2023-11-27 11:55] LABS: INR 1.1 (0.9-1.1)
--- NOTE | 2023-11-27 11:55 | XRay Report ---
XR chest 1V portable CLINICAL HISTORY: Shortness of breath. COMPARISON STUDY: Chest radiograph November 07, 2022. FINDINGS: Postoperative findings within the cervical spine are incidentally noted. Lung volumes are n ormal. Lungs are clear. There is no pneumothorax or pleural effusion. Cardiac size is normal. Mediast inal contours are normal. There is no evidence for pulmonary edema. IMPRESSION: No acute cardiopulmonary findings. ACT 112: Negative or not required by law. Electronically signed by: Diego Conn M.D. 11/27/2023 11:54 AM
[2023-11-27] MEDS: MULTI-VITAMIN INFUSION 10 ML, THIAMINE HCL 100 MG, FOLIC ACID 1 MG in SODIUM CHLORIDE 0... IV ONE (12:11)
[2023-11-27] MEDS: PANTOprazole 80 MG in DEXTROSE 5% 100 ML IV ONE (12:30)
[2023-11-27] MEDS: PANTOprazole 40 MG in DEXTROSE 5% MINI-B 100 ML IV SCH (12:51)
[2023-11-27 12:57] LABS: Albumin Globulin Ratio 1.5 (0.9-2); Albumin Level 4.9 gm/dl (3.4-5.0); BUN Creatinine Ratio 15.9 (10-20); Bilirubin,Total 0.8 mg/dl (0.2-1.0); Calcium 10.3 mg/dl (8.6-10.3); Creatinine Clr Calc Pharmacy 100.1 ml/min; Est GFR (African American) 126.3 ml/min; Globulin 3.2 gm/dl (2.5-4.0); Potassium 2.9 mmol/L (3.5-5.1); Total Protein 8.1 gm/dl (6.0-8.3)
[2023-11-27 13:00] LABS: Troponin I High Sensitivity 42.7 pg/ml (0-20)
[2023-11-27] MEDS: LACTATED RINGER'S 1,000 ML IV ONE (13:03)
[2023-11-27 13:07] LABS: Thyroid Stimulating Hormone 0.286 uIu/ml (0.300-4.500)
[2023-11-27] MEDS: PANTOPRAZOLE BOLUS/DRIP IV STA (13:10)
[2023-11-27] MEDS: OPTIRAY 320 100ml IV ONE (13:33)
[2023-11-27 13:42] LABS: T4 Free Thyroxine 1.26 ng/dl (0.61-1.60)
--- NOTE | 2023-11-27 13:51 | CT Scan Report ---
CT OF THE ABDOMEN AND PELVIS WITH CONTRAST CLINICAL HISTORY: Abdominal pain. Hematemesis. COMPARISON STUDY: CT of the abdomen and pelvis December 14, [id number]. TECHNIQUE: Following IV administration of 92 mL of Optiray, axial images of the abdomen and pelvis we re obtained from the lung bases to the proximal femurs. Images were reviewed in the axial, sagittal, and coronal planes. IV contrast was administered without complication. Automated exposure control wa s utilized for the study. A dose lowering technique was utilized adhering to the principles of ALARA . CT DOSE: 467.8 mGy.cm FINDINGS: Lung bases are unremarkable. No pneumatosis, free air or portal venous gas is present. Subc entimeter right hepatic lobe lesion is likely benign. There are no suspicious hepatic lesions. The sp shoaib, adrenal glands, left kidney and pancreas are normal. There is no biliary or pancreatic ductal d ilatation. There is no peripancreatic or pericholecystic infiltration. There is a 3 mm right renal ca lculus. There are no ureteral calculi. There is no hydronephrosis. The appendix is normal. There is n o free fluid. The proximal jejunum is slightly dilated and fluid-filled. No transition point is ident ified. No bowel wall thickening. The stomach is also mildly fluid-filled. IMPRESSION: 1. Normal appendix. No bowel obstruction. No bowel wall thickening. 2. Mildly dilated fluid-filled jejunal and fluid-filled stomach. The findings could represent gastroe nteritis. 3. 3 mm right renal calculus. No ureteral calculi. No hydronephrosis. ACT 112: Negative or not required by law. Electronically signed by: Diego Conn M.D. 11/27/2023 1:49 PM
[2023-11-27 14:05] LABS: Influenza A virus by PCR Negative (Neg); Influenza B virus by PCR Negative (Neg); RSV by PCR Negative (Neg); SARS CoV2 RNA(COVID-19) Ceph NEGATIVE (Negative)
[2023-11-27] MEDS: ACETAMINOPHEN 1,000 MG/100 ML VIAL IV STA (14:44)
[2023-11-27] MEDS: cefTRIAXone SODIUM 2,000 MG/50 ML BAG IV STA (14:45)
--- NOTE | 2023-11-27 14:45 | Electrocardiogram Report ---
Test Reason : Blood Pressure : */* mmHG Vent. Rate : 83 BPM Atrial Rate : 83 BPM P-R Int : 114 ms QRS Dur : 86 ms QT Int : 444 ms P-R-T Axes : 71 80 50 degrees QTcB Int : 521 ms Normal sinus rhythm Left atrial enlargement Diffuse Nonspecific ST abnormality Prolonged QT Abnormal ECG When compared with ECG of 16-Feb-2023 07:47, Nonspecific ST abnormality now present QT has lengthened Confirmed by Raza Holman ([id number]) on 11/27/2023 2:44:36 PM Referred By: [facility] Confirmed By: Raza Holman
[2023-11-27] MEDS ORDERED: Ativan IV Alcohol Withdrawal--Active Protocol IV PRN (15:01)
[2023-11-27 15:16] LABS: Appearance Urine Clear (Clear); Bacteria Urine Automated None Seen (None Seen); Bilirubin Urine Negative (Negative); Blood Urine Negative (Negative); Color Urine Yellow; Epithelial Cell Urine Auto 0-2 /hpf (0-2); Glucose Urine UA Negative (Negative); Ketones Urine 4+ (Negative); Leukocyte Esterase Urine Negative (Negative); Nitrite Urine Negative (Negative); Protein Urine Trace (Negative); RBC Urine Automated 0-2 /hpf (0-2); Specific Gravity Urine 1.037 (1.000-1.030); Urobilinogen Urine Negative (Negative); WBC Urine Automated 0-5 /hpf (0-5); pH Urine 5.5 (4.5-7.5)
--- NOTE | 2023-11-27 15:32 | History & Physical Report ---
Date of Service November 27, 2023 Assessment & Plan (1) Opiate withdrawal: Plan: COWS 19 on admission. He is also going through alcohol withdrawal but given lacrimation, yawning, abdominal pain and diarrhea suspect a lot of his symptoms are opiate withdrawal [facility] Traditional buprenorphine initiation protocol - start with buprenorphine/naloxone 4/1mg, will recheck for ongoing withd Adjuvant therapy with clonidine and ondansetron for nausea IV fluids (2) Alcohol withdrawal syndrome: Plan: Lorazepam 1-3mg IV PRN, no Librium or phenobarbital due to concurrent opiate withdrawal (3) Depression: Plan: Continue mirtazapine 15mg PO HS (4) Hematemesis: Plan: IV pantoprazole bolus and drip, trend H&H NPO (5) Urine retention: Plan: Suspect due to withdrawal Saldana catheter placed on admission Will defer tamsulosin as likely to pass without this after he goes through withdrawal (6) Hypokalemia: Plan: Replace in IV fluids and recheck in AM Plan VTE Prophylaxis - low risk Diet - NPO Disposition - admit to PCU Admission and Anticipated Discharge Date Admission Date: November 27, 2023 History of Present Illness Chief Complaint: Opiate and alcohol withdrawal Primary Care Provider: [facility] Declan Cordova is a 38 year old male who presents to the ER after being arrested yesterday. Today he started going through withdrawal with history of seizures. He has tremors, became anxious, severe generalized abdominal pain, headache, difficulty urinating, sweating, diarrhea, nausea, vomiting and hematemesis. Difficult to get a full history from the patient as going through withdrawal at this time and only sometimes answering my questions. He reports taking mirtazapine, ondansetron and clomiphene prior he medications list from the [facility]. The clonidine and clonazepam are what the [facility] had prescribed for withdrawal but he is unsure if he took any yet. Per report he was given 5mg Valium and Zofran prior to arrival in the ER. He notes prior use of Suboxone has helped with withdrawals in the past. He was drinking a 5th of vodka a day and snorting 16 bags of Fentanyl a day for the last 3 months, last use was 1pm yesterday. No urine symptoms other than retention. No respiratory symptoms. Abdominal pain is chronic and actually improved since he has had medications in the ER. He reports hematemesis was coffee ground - none since he arrived in the ER. Allergies Allergy/AdvReac Type Severity Reaction Status Date / Time Sulfa (Sulfonamide Allergy Unknown Verified 02/16/23 08:35 Antibiotics) Home Medications Medication Instructions Recorded Confirmed Type clonazepam 2 mg tablet See Rx Instructions .Route .COMPLEX 11/27/23 11/27/23 History clonidine HCl 0.1 mg tablet See Rx Instructions .Route .COMPLEX 11/27/23 11/27/23 History folic acid 1 mg tablet 1 mg PO DAILY 11/27/23 11/27/23 History loperamide 2 mg capsule 2 mg PO TID PRN Diarrhea 11/27/23 11/27/23 History magnesium oxide 400 mg PO DAILY 11/27/23 11/27/23 History mirtazapine 15 mg tablet 0 mg PO HS 11/27/23 11/27/23 History multivitamin 1 tab PO DAILY 11/27/23 11/27/23 History ondansetron 4 mg disintegrating 4 mg translingual TID PRN Nausea 11/27/23 11/27/23 History tablet And Vomiting ondansetron HCl (PF) 4 mg/2 mL 4 mg IV TID PRN Nausea And Vomiting 11/27/23 11/27/23 History injection solution vitamin B complex 1 tab PO DAILY 11/27/23 11/27/23 History Past Med/Surg History Problem List (Updated 11/28/23 @ 06:30 by Jose Alberto Covarrubias MD) Hypokalemia Urine retention Hematemesis Opiate withdrawal Substance abuse (Acute) Alcohol abuse (Acute) Alcohol withdrawal syndrome (Acute) Medical History Depression (01/22/12) Surgical History Hx of cervical spine surgery Social History Smoking Status: Never smoker Hx Alcohol Use: Yes Hx Substance Use: Yes Substance Use Type Other:: FENTANYL Preferred Language: [place] Intern Retail Required: No Beliefs That Will Affect Care: None Current Living Situation Comment: [facility] Feels Safe at Home: Yes Safety Concerns: Feels Safe At This Time Review of Systems Review of Systems: All systems reviewed & are unremarkable except as noted in HPI & below Physical Exam Constitutional: well developed and + acute distress (agitated); + not well nourished Eyes: PERRL (dilated); no conjunctival abnormality ENMT: external ear and nose normal, oropharynx normal Respiratory: normal respiratory effort, lungs clear to auscultation Cardiovascular: Rate/Rhythm: regular rhythm and + tachycardic Heart Sounds: no murmur Extremities: normal capillary refill; no calf tenderness and no pedal edema Gastrointestinal (Abdomen): Inspection/Auscultation: abdomen normal to inspe ction; abdomen not distended Percussion/Palpation: + abdomen tender (generalized) and abdomen soft; no guarding and abdomen not rigid Musculoskeletal: no cyanosis or clubbing, extremities motor strength 5/5 Skin: no rashes, warm and dry Neurologic: moves all extremities and awake; no focal motor deficits and not confused Speech / Cognition: normal speech Motor/Sensory: no tremor and no pronator drift Cranial Nerves: PERRL, EOM intact bilaterally, normal facial strength, able to rotate head bilaterally, able to elevate shoulders bilaterally, no nystagmus and symmetric palate elevation Psychiatric: Orientation: alert, oriented to person, oriented to place and oriented to time Results & Data Results & Data Vital Signs (Past 12 Hours) Vital Signs Temp Pulse Resp BP Pulse Ox O2 Del Method 11/27/23 14:28 95 H 11/27/23 14:00 39.6 C H 11/27/23 13:00 152/82 H 11/27/23 12:54 112 H 33 H 97 11/27/23 12:00 159/82 H 11/27/23 11:54 103 H 30 H 98 11/27/23 10:32 86 11/27/23 10:28 37 C 88 20 153/89 H 100 Room Air Laboratory Results Abnormal lab results 11/27/23 11/27/23 Range/Units 10:35 14:42 WBC 12.94 H (4.8-10.8) K/ul Hgb 13.3 L (14.0-18.0) g/dl Hct 39.0 L (42.0-52.0) % MCV 79.4 L (80.0-100.0) fL Plt Count 448 H (130-400) K/uL Neut # (Auto) 11.26 H (1.40-6.50) K/uL Lymph # (Auto) 1.04 L (1.20-3.40) K/uL Sodium 146 H (136-145) mmol/L Potassium 2.9 L (3.5-5.1) mmol/L Anion Gap 18 H (3-11) Glucose 149 H (70-99(Fasting)) mg/dl Troponin I High Sens 42.7 H (0-20) pg/ml TSH 0.286 L (0.300-4.500) uIu/ml Ur Specific Buena 1.037 H (1.000-1.030) Urine Protein Trace H (Negative) Urine Ketones 4+ H (Negative) U Hyaline Cast (Auto) 11-20 H (0-2) /lpf Diagnostic Findings XR chest 1V portable CLINICAL HISTORY: Shortness of breath. COMPARISON STUDY: Chest radiograph November 07, 2022. FINDINGS: Postoperative findings within the cervical spine are incidentally noted. Lung volumes are normal. Lungs are clear. There is no pneumothorax or pleural effusion. Cardiac size is normal. Mediastinal contours are normal. There is no evidence for pulmonary edema. IMPRESSION: No acute cardiopulmonary findings. CT OF THE ABDOMEN AND PELVIS WITH CONTRAST CLINICAL HISTORY: Abdominal pain. Hematemesis. COMPARISON STUDY: CT of the abdomen and pelvis December 14, 20112022. TECHNIQUE: Following IV administration of 92 mL of Optiray, axial images of the abdomen and pelvis were obtained from the lung bases to the proximal femurs. Images were reviewed in the axial, sagittal, and coronal planes. IV contrast was administered without complication. Automated exposure control was utilized for the study. A dose lowering technique was utilized adhering to the principles of ALARA. CT DOSE: 467.8 mGy.cm FINDINGS: Lung bases are unremarkable. No pneumatosis, free air or portal venous gas is present. Subcentimeter right hepatic lobe lesion is likely benign. There are no suspicious hepatic lesions. The spleen, adrenal glands, left kidney and pancreas are normal. There is no biliary or pancreatic ductal dilatation. There is no peripancreatic or pericholecystic infiltration. There is a 3 mm right r enal calculus. There are no ureteral calculi. There is no hydronephrosis. The appendix is normal. There is no free fluid. The proximal jejunum is slightly dilated and fluid-filled. No transition point is identified. No bowel wall thickening. The stomach is also mildly fluid-filled. IMPRESSION: 1. Normal appendix. No bowel obstruction. No bowel wall thickening. 2. Mildly dilated fluid-filled jejunal and fluid-filled stomach. The findings could represent gastroenteritis. 3. 3 mm right renal calculus. No ureteral calculi. No hydronephrosis. Medications Administered ER Medications Given: Normal saline 1L bolus Banana Bag Pantoprazole 80mg IV bolus and drip Metoclopramide 5mg IV Diazepam 10mg IV Magnesium sulfate 1g IV Ceftriaxone 2g IV LR 1L bolus Diazepam 10mg IV Acetaminophen 1000mg IV Diazepam 10mg IV ECG Rate (beats per minute): 83 Rhythm: normal sinus Findings: + nonspecific-ST abn (diffuse) Comparison ECG Date: from (February 16, 2023) Code Status & VTE Plan Code Status Full VTE Prophylaxis Plan VTE Prophylaxis will be ordered: No PG Care Time/CCT Total # of Minutes Spent Total Time Spent with Patient: Total time spent is greater than 50% in coordination of care (as documented) at patient's floor/unit and/or counseling patient: Coding Level of Care Code 48998 INT INP/OBS CARE 3/75MIN Diagnoses Opiate withdrawal F11.93 Alcohol withdrawal syndrome F10.939 Depression F32.A Hematemesis K92.0 Urine retention R33.9 Hypokalemia E87.6
[2023-11-27 15:44] LABS: Amphetamines+Metham, Urine Neg (Neg); Barbiturates, Urine Neg (Neg); Benzodiazepine, Urine Pos (Neg); Cocaine, Urine Neg (Neg); Fentanyl, Urine Pos (Neg); MDMA (Ecstacy), Urine Neg (Neg); Marijuana, Urine Pos (Neg); Methadone, Urine Neg (Neg); Opiate, Urine Neg (Neg); Phencyclidine, Urine Neg (Neg)
[2023-11-27] MEDS: FOLIC ACID 1 MG in SYRINGE 9.8 ML IV SCH (15:50)
[2023-11-27] MEDS: chlordiazePOXIDE HCl 25 MG CAP PO SCH (15:51)
[2023-11-27] MEDS: LACTATED RINGER'S 1,000 ML IV SCH (15:53)
[2023-11-27 16:25] LABS: Adenovirus F 40/41 PCR Not Detected (NotDetected); Astrovirus PCR Not Detected (NotDetected); Campylobacter PCR Not Detected (NotDetected); Cryptosporidium PCR Not Detected (NotDetected); Cyclospora cayetanensis PCR Not Detected (NotDetected); Entamoeba histolytica PCR Not Detected (NotDetected); Enteroaggregative E.coli(EAEC) Not Detected (NotDetected); Enteropathogenic E.coli (EPEC) Not Detected (NotDetected); Enterotoxigenic E.coli (ETEC) Not Detected (NotDetected); Giardia lamblia PCR Not Detected (NotDetected); Norovirus GI/GII PCR Not Detected (NotDetected); Plesiomonas shigelloides PCR Not Detected (NotDetected); Rotavirus A PCR Not Detected (NotDetected); Salmonella PCR Not Detected (NotDetected); Sapovirus PCR Not Detected (NotDetected); Shiga-like Toxin E.coli (STEC) Not Detected (NotDetected); Shigella/Enteroinvasive E.coli Not Detected (NotDetected); Vibrio cholerae PCR Not Detected (NotDetected); Vibrio species PCR Not Detected (NotDetected); Yersinia enterocolitica PCR Not Detected (NotDetected)
[2023-11-27] MEDS: BUPRENORPHINE/NALOXONE 2/0.5MG TAB PO STA ×2 (16:36→19:55)
[2023-11-27] MEDS: LORazepam 2 MG/1 ML VIAL IV PRN ×3 (16:36→21:29)
[2023-11-27] MEDS: chlordiazePOXIDE ALCOHOL WITHDRAWL 50MG PO STA (16:39)
[2023-11-27] MEDS: buprenorphine HCL 2 MG SUBL SL STA (16:39)
[2023-11-27] MEDS: POTASSIUM CHLORIDE / WTR 10 MEQ/100 ML PLCT IV SCH (18:36)
[2023-11-27 19:18] LABS: BUN Creatinine Ratio 11.9 (10-20); Calcium 9.2 mg/dl (8.6-10.3); Creatinine Clr Calc Pharmacy 104.9 ml/min; Est GFR (African American) 128.7 ml/min; Est GFR (Non-African American) 111.1 ml/min; Hematocrit (blood only) 37.2 % (42.0-52.0); Hemoglobin 12.8 g/dl (14.0-18.0)
[2023-11-27] MEDS: cloNIDine HCL 0.1 MG TAB PO SCH (20:07)
[2023-11-27] MEDS: MIRTAZAPINE TAB 15 MG TAB PO SCH (20:07)
[2023-11-27] MEDS: LORazepam 2 MG/1 ML VIAL IV STA (20:51)
[2023-11-27] MEDS: POTASSIUM CHLORIDE 40 MEQ in D5W AND 1/2NSS 1,000 ML IV SCH (23:13)
[2023-11-28] MEDS: ACETAMINOPHEN 1,000 MG/100 ML VIAL IV STA (03:47)
[2023-11-28 07:23] LABS: Albumin Globulin Ratio 1.5 (0.9-2); BUN Creatinine Ratio 9.7 (10-20); Bilirubin,Total 0.9 mg/dl (0.2-1.0); Calcium 8.9 mg/dl (8.6-10.3); Creatinine Clr Calc Pharmacy 122.4 ml/min; Est GFR (African American) 137.2 ml/min; Est GFR (Non-African American) 118.3 ml/min; Globulin 2.6 gm/dl (2.5-4.0); Potassium 3.1 mmol/L (3.5-5.1); Total Protein 6.6 gm/dl (6.0-8.3)
[2023-11-28 07:44] LABS: Basophils # (auto) 0.02 K/uL (0.00-0.20); Basophils % (auto) 0.1 %; Hematocrit (blood only) 35.3 % (42.0-52.0); Hemoglobin 12.3 g/dl (14.0-18.0); Immature Granulocytes # (auto) 0.06 K/uL (0.01-0.20); Immature Granulocytes % (auto) 0.4 %; Lymphocytes # (auto) 2.31 K/uL (1.20-3.40); Lymphocytes % (auto) 15.3 %; Mean Corpuscular Hemoglobin 27.6 pg (25.0-34.0); Mean Corpuscular Hgb Conc 34.8 g/dL (32.0-36.0); Mean Corpuscular Volume 79.1 fL (80.0-100.0); Mean Platelet Volume 9.4 fL (9.4-12.4); Monocytes # (auto) 0.96 K/uL (0.11-0.59); Monocytes % (auto) 6.4 %; Neutrophils # (auto) 11.71 K/uL (1.40-6.50); Neutrophils % (auto) 77.8 %; Platelet Count 286 K/uL (130-400); RDW Coefficient of Variation 13.9 % (11.5-14.5); RDW Standard Deviation 39.8 fL (36.4-46.3); Red Blood Count 4.46 M/uL (4.70-6.10); White Blood Count 15.06 K/ul (4.8-10.8)
[2023-11-28 07:48] LABS: A calco-baum cmplx NotReported Not Detected (NotDetected); Bact fragilis Not Reported Not Detected (NotDetected); Blood Culture Id Panel See PCR Comment (NotDetected); C auris Not Reported Not Detected (NotDetected); Calbicans Not Reported Not Detected (NotDetected); Candida glabrata Not Reported Not Detected (NotDetected); Candida krusei Not Reported Not Detected (NotDetected); Cneoformans/gatti Not Reported Not Detected (NotDetected); Cparapsilosis Not Reported Not Detected (NotDetected); E cloacae compx Not Reported Not Detected (NotDetected); Efaecalis Not Reported Not Detected (NotDetected); Efaecium Not Reported Not Detected (NotDetected); Enterobacterales Not Reported Not Detected (NotDetected); Escherichia coli Not Reported Not Detected (NotDetected); H influenzae Not Reported Not Detected (NotDetected); K aerogenes Not Reported Not Detected (NotDetected); Koxytoca Not Reported Not Detected (NotDetected); Kpneumoniae grp Not Reported Not Detected (NotDetected); Lmonocyt Not Reported Not Detected (NotDetected); N meningitidis Not Reported Not Detected (NotDetected); P aeruginosa Not Reported Not Detected (NotDetected); Proteus spp Not Reported Not Detected (NotDetected); Salmonella spp Not Reported Not Detected (NotDetected); Staph lugdunensis Not Reported Not Detected (NotDetected); Staph spp. Not Reported DETECTED (NotDetected); Staphaureus Not Reported Not Detected (NotDetected); Staphepi Not Reported DETECTED (NotDetected); Staphylococcus spp. DETECTED (NotDetected); Stenmaltophilia Not Reported Not Detected (NotDetected); Strep agal(GrpB) Not Reported Not Detected (NotDetected); Strep pneum Not Reported Not Detected (NotDetected); Strep pyog (GrpA) Not Reported Not Detected (NotDetected); Strep spp Not Reported Not Detected (NotDetected); mecAC Resistant Gene DETECTED (NotDetected)
[2023-11-28 08:09] LABS: Staphylococcus epidermidis DETECTED (NotDetected)
[2023-11-28] MEDS: POTASSIUM CHLORIDE / WTR 10 MEQ/100 ML PLCT IV SCH (08:46)
[2023-11-28] MEDS: THIAMINE HCL 100 MG in SYRINGE 9 ML IV SCH (08:49)
[2023-11-28] MEDS: POTASSIUM CHLORIDE CRTAB 20 MEQ TABCR PO STA (09:35)
[2023-11-28] MEDS: FOLIC ACID 1 MG TAB PO SCH (09:45)
[2023-11-28] MEDS: MAGNESIUM OXIDE 400 MG TAB PO SCH (09:46)
[2023-11-28] MEDS: VITAMIN B COMPLEX TAB PO SCH (09:46)
[2023-11-28 10:29] LABS: Appearance Urine Clear (Clear); Bacteria Urine Automated None Seen (None Seen); Bilirubin Urine Negative (Negative); Blood Urine 2+ (Negative); Cast Urine Automated 0-2 /lpf (0-2); Color Urine Yellow; Epithelial Cell Urine Auto 0-2 /hpf (0-2); Glucose Urine UA Negative (Negative); Ketones Urine 2+ (Negative); Leukocyte Esterase Urine 1+ (Negative); Nitrite Urine Negative (Negative); Protein Urine Trace (Negative); Urobilinogen Urine Negative (Negative); WBC Urine Automated 0-5 /hpf (0-5)
[2023-11-28] MEDS: cefTRIAXone SODIUM 2,000 MG/50 ML BAG IV SCH (13:36)
[2023-11-28] MEDS: BUPRENORPHINE/NALOXONE 2/0.5MG TAB PO ONE (13:36)
[2023-11-28] MEDS: ONDANSETRON INJ 2 MG/ML 2 ML VIAL IV PRN (16:20)
--- NOTE | 2023-11-28 16:35 | Hospitalist Progress Note ---
Date of Service November 28, 2023 Assessment & Plan (1) Opiate withdrawal: (2) Alcohol withdrawal syndrome: (3) Depression: (4) Hematemesis: (5) Urine retention: (6) Hypokalemia: (7) Contamination of blood culture: Plan 38 y/o M inmate here for opiate and alcohol withdrawal. (1) Opiate withdrawal: COWS 19 on admission. He is also going through alcohol withdrawal but given lacrimation, yawning, abdominal pain and diarrhea suspected a lot of his symptoms are opiate withdrawal [facility] Traditional buprenorphine initiation protocol - started with buprenorphine/naloxone (6/1.5 on 11/26) -Re-dose today 06/08 today Adjuvant therapy with clonidine and ondansetron for nausea IV fluids (2) Alcohol withdrawal syndrome: Lorazepam 1-3mg IV PRN, no Librium or phenobarbital due to concurrent opiate withdrawal (3) Depression: Continue mirtazapine 15mg PO HS (4) Hematemesis: IV pantoprazole bolus and drip, trend H&H 12.3 last hb NPO (5) Urine retention: Suspect due to withdrawal Saldana catheter in place Will defer tamsulosin as likely to pass without this after he goes through withdrawal (6) Hypokalemia: 40 meq today. recheck in am. (7) Contamination of blood culture: blood cx - staph epidermidis methicillin resistant. one blood cx. based on protocol - likely contaminant. Fever and wbc elevation likely from withdrawal. Plan VTE Prophylaxis - low risk Diet - NPO Admission and Anticipated Discharge Date Admission Date: November 27, 2023 Subjective seen this am. opened eyes slightly on calling the name. no verbal response back restless in bed. Physical Exam Physical Exam: opened eyes slightly on calling the name. no verbal response back restless in bed Tachycardic CTA anteriorly Abd - soft. Results & Data Results & Data Vital Signs (Past 12 Hours) Vital Signs Temp Pulse Pulse Resp BP Pulse Ox O2 Del Method 11/28/23 16:08 85 11/28/23 14:56 37.0 C 84 20 136/89 100 Room Air 11/28/23 13:34 37.0 C 81 18 156/82 H 100 Room Air 11/28/23 11:47 37.2 C 84 16 159/68 H 99 Room Air 11/28/23 09:42 37.2 C 79 18 166/85 H 100 Room Air 11/28/23 07:30 78 11/28/23 07:29 37.3 C 74 18 162/79 H 99 Room Air (2) Alcohol withdrawal syndrome Complication of substance-induced condition: with delirium Qualified Code(s): F10.931 - Alcohol use, unspecified with withdrawal delirium (3) Depression Depression Type: unspecified Qualified Code(s): F32.A - Depression, unspecified (4) Hematemesis Nausea presence: unspecified Qualified Code(s): K92.0 - Hematemesis
[2023-11-28] MEDS ORDERED: chlordiazePOXIDE HCl 25 MG CAP PO SCH (17:15)
[2023-11-28] MEDS: ACETAMINOPHEN 500 MG TAB PO PRN (18:09)
[2023-11-29 06:06] LABS: Basophils # (auto) 0.04 K/uL (0.00-0.20); Basophils % (auto) 0.4 %; Eosinophils # (auto) 0.02 K/uL (0.00-0.50); Eosinophils % (auto) 0.2 %; Hematocrit (blood only) 39.4 % (42.0-52.0); Immature Granulocytes # (auto) 0.03 K/uL (0.01-0.20); Immature Granulocytes % (auto) 0.3 %; Lymphocytes # (auto) 3.03 K/uL (1.20-3.40); Lymphocytes % (auto) 28.1 %; Mean Corpuscular Hemoglobin 26.9 pg (25.0-34.0); Mean Corpuscular Volume 81.6 fL (80.0-100.0); Mean Platelet Volume 9.2 fL (9.4-12.4); Monocytes # (auto) 0.79 K/uL (0.11-0.59); Monocytes % (auto) 7.3 %; Neutrophils # (auto) 6.86 K/uL (1.40-6.50); Neutrophils % (auto) 63.7 %; Platelet Count 243 K/uL (130-400); RDW Coefficient of Variation 14.3 % (11.5-14.5); RDW Standard Deviation 41.9 fL (36.4-46.3); Red Blood Count 4.83 M/uL (4.70-6.10); White Blood Count 10.77 K/ul (4.8-10.8)
[2023-11-29 06:23] LABS: BUN Creatinine Ratio 8.5 (10-20); Calcium 8.3 mg/dl (8.6-10.3); Creatinine Clr Calc Pharmacy 123.7 ml/min; Est GFR (African American) 137.9 ml/min; Potassium 3.6 mmol/L (3.5-5.1)
[2023-11-29] MEDS: LOPERAMIDE HCL 2 MG CAP PO PRN (09:00)
[2023-11-29] MEDS: BUPRENORPHINE/NALOXONE 2/0.5MG TAB PO STA (09:06)
--- NOTE | 2023-11-29 10:07 | Hospitalist Progress Note ---
Date of Service November 29, 2023 Assessment & Plan (1) Opiate withdrawal: (2) Alcohol withdrawal syndrome: (3) Depression: (4) Hematemesis: (5) Urine retention: (6) Hypokalemia: (7) Contamination of blood culture: Plan 38 y/o M inmate here for opiate and alcohol withdrawal. Opiate withdrawal: COWS 19 on admission. He is also going through alcohol withdrawal but given lacrimation, yawning, abdominal pain and diarrhea suspected a lot of his symptoms are opiate withdrawal [facility] Traditional buprenorphine initiation protocol - started with buprenorphine/naloxone (6/1.5 on 11/26) -Dosed on 11/27 06/08 - Re- dose today 6mg - 11/28 Adjuvant therapy with clonidine and ondansetron for nausea Imodium for diarrhea IV fluids d/c Alcohol withdrawal syndrome: Lorazepam 1-3mg IV PRN, no Librium or phenobarbital due to concurrent opiate withdrawal Depression: Continue mirtazapine 15mg PO HS Hematemesis: resolved IV pantoprazole d/c Zofran for nausea Diet started today Urine retention: Suspect due to withdrawal Saldana catheter in place Will remove today and do a trial Hypokalemia - resolved BMP in am Contamination of blood culture: blood cx - staph epidermidis methicillin resistant. one blood cx. based on protocol - likely contaminant. Fever and wbc elevation likely from withdrawal. leukocytosis- resolved Plan VTE Prophylaxis - low risk Diet - Regular diet Admission and Anticipated Discharge Date Admission Date: November 27, 2023 Supervising Physician Co-Signing Physician Notes Attending Physician Supervision Note: I independently interviewed and examined the patient and verified the noel history and physical, reviewed labs and image studies and agree with findings and care plan noted above. Subjective Seen this am. Awake. Refers having abdominal cramps, diarrhea, sweating and t remors. Her refers he wants to eat and shower. Review of Systems Review of Systems: as per HPI Physical Exam Constitutional: cooperative and + diaphoretic; no altered mental status Respiratory: normal respiratory effort, lungs clear to auscultation Cardiovascular: RRR, no murmur, no edema Gastrointestinal (Abdomen): normal bowel sounds, soft, nontender, no hepatosplenomegaly Results & Data Results & Data Vital Signs (Past 12 Hours) Vital Signs Temp Pulse Pulse Resp BP Pulse Ox O2 Del Method 11/29/23 07:30 64 11/29/23 07:24 37.6 C H 60 18 151/85 H 99 Room Air 11/29/23 04:15 36.5 C 54 L 17 148/87 H 99 Room Air 11/28/23 23:54 36.4 C L 62 17 153/100 H 100 Room Air 11/28/23 23:15 91 H Resident Activity Tracking Resident Involvement: Resident Care Provided Care Provided: Adult Hospital Medicine (2) Alcohol withdrawal syndrome Complication of substance-induced condition: with delirium Qualified Code(s): F10.931 - Alcohol use, unspecified with withdrawal delirium (3) Depression Depression Type: unspecified Qualified Code(s): F32.A - Depression, unspecified (4) Hematemesis Nausea presence: unspecified Qualified Code(s): K92.0 - Hematemesis
[2023-11-29] MEDS ORDERED: chlordiazePOXIDE HCl 25 MG CAP PO SCH (17:15)
[2023-11-29] MEDS: CALCIUM CARBONATE 500 MG CHEWABLE TAB PO ONE (21:53)
[2023-11-30 05:54] LABS: Basophils # (auto) 0.03 K/uL (0.00-0.20); Basophils % (auto) 0.3 %; Eosinophils # (auto) 0.12 K/uL (0.00-0.50); Eosinophils % (auto) 1.2 %; Hematocrit (blood only) 40.1 % (42.0-52.0); Hemoglobin 13.9 g/dl (14.0-18.0); Immature Granulocytes # (auto) 0.03 K/uL (0.01-0.20); Immature Granulocytes % (auto) 0.3 %; Lymphocytes # (auto) 3.58 K/uL (1.20-3.40); Lymphocytes % (auto) 37.1 %; Mean Corpuscular Hemoglobin 27.6 pg (25.0-34.0); Mean Corpuscular Hgb Conc 34.7 g/dL (32.0-36.0); Mean Corpuscular Volume 79.7 fL (80.0-100.0); Mean Platelet Volume 9.1 fL (9.4-12.4); Monocytes # (auto) 0.59 K/uL (0.11-0.59); Monocytes % (auto) 6.1 %; Neutrophils # (auto) 5.29 K/uL (1.40-6.50); Platelet Count 262 K/uL (130-400); RDW Coefficient of Variation 13.8 % (11.5-14.5); RDW Standard Deviation 39.9 fL (36.4-46.3); Red Blood Count 5.03 M/uL (4.70-6.10); White Blood Count 9.64 K/ul (4.8-10.8)
[2023-11-30 05:56] LABS: Calcium 8.9 mg/dl (8.6-10.3); Creatinine Clr Calc Pharmacy 120.9 ml/min; Est GFR (African American) 136.4 ml/min; Est GFR (Non-African American) 117.7 ml/min; Potassium 3.8 mmol/L (3.5-5.1)
[2023-11-30] MEDS: BUPRENORPHINE/NALOXONE 2/0.5MG TAB PO STA (08:32)
[2023-11-30] MEDS: PANTOprazole 40 MG TAB PO SCH (09:37)
[2023-11-30] MEDS: CALCIUM CARBONATE 500 MG CHEWABLE TAB PO PRN (09:47)
--- NOTE | 2023-11-30 11:54 | Discharge Summary ---
Date of Service November 30, 2023 Admission HPI Per Admitting Provider Declan Cordova is a 38 year old male who presents to the ER after being arrested yesterday. Today he started going through withdrawal with history of seizures. He has tremors, became anxious, severe generalized abdominal pain, headache, difficulty urinating, sweating, diarrhea, nausea, vomiting and hematemesis. Difficult to get a full history from the patient as going through withdrawal at this time and only sometimes answering my questions. He reports taking mirtazapine, ondansetron and clomiphene prior he medications list from the half-way. The clonidine and clonazepam are what the half-way had prescribed for withdrawal but he is unsure if he took any yet. Per report he was given 5mg Valium and Zofran prior to arrival in the ER. He notes prior use of Suboxone has helped with withdrawals in the past. He was drinking a 5th of vodka a day and snorting 16 bags of Fentanyl a day for the last 3 months, last use was 1pm yesterday. No urine symptoms other than retention. No respiratory symptoms. Abdominal pain is chronic and actually improved since he has had medications in the ER. He reports hematemesis was coffee ground - none since he arrived in the ER. Principal Diagnosis opioid withdrawal Discharge Exam Constitutional cooperative and + diaphoretic; no altered mental status Respiratory normal respiratory effort, lungs clear to auscultation Cardiovascular RRR, no murmur, no edema Gastrointestinal (Abdomen) normal bowel sounds, soft, nontender, no hepatosplenomegaly Discharge Data Allergies Allergy/AdvReac Type Severity Reaction Status Date / Time Sulfa (Sulfonamide Allergy Unknown Verified 02/16/23 08:35 Antibiotics) Consultations 11/27/23 14:48 ED Decision to Admit Stat Ordered Studies 11/27/23 13:15 CT abd pelvis IV con only Stat Hospital Course (1) Opiate withdrawal: (2) Alcohol withdrawal syndrome: (3) Depression: (4) Hematemesis: (5) Urine retention: (6) Hypokalemia: (7) Contamination of blood culture: Plan Opiate withdrawal: COWS 19 on admission. He is also going through alcohol withdrawal but given lacrimation, yawning, abdominal pain and diarrhea suspected a lot of his symptoms are opiate withdrawal [facility] Traditional buprenorphine initiation protocol - started with buprenorphine/naloxone (6/1.5 on 11/26) -Dosed on 11/27 4/1 - Re- dose 6/ 1.5 11/28 - Re- dose today 6/1.5mg - 11/29 Adjuvant therapy with clonidine and ondansetron for nausea Continue buprenorphine/ Naloxone - 3 tabs (6 mg/1.5) daily. Can do taper or continue with current dose daily Clonidine taper: the patient is to take 0.1mg by mouth BID starting 11/30/23 (first dose given this morning) - ending 12/01/23, then patient is to take 0.5mg by mouth BID starting 12/02/23 - ending 12/03/23 Continue Protonix 40 mg daily Continue imodium as needed Alcohol withdrawal syndrome: Kept on Lorazepam 1-3mg IV PRN, no Librium or phenobarbital due to concurrent opiate withdrawal ROMAIN- 0-5 in the last 12 hrs Depression: Continue mirtazapine 15mg PO HS Hematemesis: secondary to GI symptoms due to withdrawal. resolved IV pantoprazole d/c. Continue Protonix 40 mg daily Zofran for nausea Tolerated diet well Urine retention - resolved Suspect due to withdrawal Voiding spontaneously Hypokalemia - resolved Contamination of blood culture: blood cx - staph epidermidis methicillin resistant. one blood cx. based on protocol - likely contaminant. Fever and wbc elevation likely from withdrawal. No fever in the last 24 hrs. WBC has normalized leukocytosis- resolved Total Time Total Time Spent Total Time Spent (In Minutes): see attending attestation Discharge Plan Discharge Items [facility] Reason For Visit: OPIATE AND ALCOHOL WITHDRAWAL Discharge Diagnosis: Opiate and alcohol withdrawal Activity: Per Instructions section Non-emergency contact: Primary Care Provider Call non-emergency contact if: you have any medication questions and your symptoms worsen Follow-up/Referrals: [facility] [Primary Care Provider] - Diet: Regular Addtl Attending Provider Instructions: 38 y/o M inmate here for opiate and alcohol withdrawal. Opiate withdrawal: COWS 19 on admission. He is also going through alcohol withdrawal but given lacrimation, yawning, abdominal pain and diarrhea suspected a lot of his symptoms are opiate withdrawal [facility] Traditional buprenorphine initiation protocol - started with buprenorphine/naloxone (6/1.5 on 11/26) -Dosed on 11/27 4/1 - Re- dose today 6/ 1.5 11/28 - Re- dose today 6/1.5mg Adjuvant therapy with clonidine and ondansetron for nausea Continue buprenorphine/ Naloxone - 3 tabs (6 mg/1.5) daily. Can do taper or continue with current dose daily Clonidine taper: the patient is to take 0.1mg by mouth BID starting 11/30/23 (first dose given this morning) - ending 12/01/23, then patient is to take 0.5mg by mouth BID starting 12/02/23 - ending 12/03/23 Continue Protonix 40 mg daily Continue imodium as needed Bentyl as needed for abdominal pain Alcohol withdrawal syndrome: Lorazepam 1-3mg IV PRN, no Librium or phenobarbital due to concurrent opiate withdrawal ROMAIN- 0-5 in the last 12 hrs Depression: Continue mirtazapine 15mg PO HS Hematemesis: resolved IV pantoprazole d/c Zofran for nausea Protonix 40 mg daily Tolerated diet well Urine retention - resolved Suspect due to withdrawal Voiding spontaneously Hypokalemia - resolved Contamination of blood culture: blood cx - staph epidermidis methicillin resistant. one blood cx. based on protocol - likely contaminant. Fever and wbc elevation likely from withdrawal. No fever in the last 24 hrs. WBC has normalized leukocytosis- resolved Pending Studies at Discharge: No Stand-Alone Forms: My [employer], Smoking Cessation Skilled Items Patient informed of condition?: Yes Discharge Level of Care: Other Communicable Disease: No Discharge Prognosis: Stable Lines: None Urinary Catheter: No Medications and DC Order Prescriptions: New pantoprazole 40 mg Tablet,Delayed Release (Dr/Ec) 40 mg PO QAM 30 Days Qty: 30 0RF Continued multivitamin Tablet 1 tab PO DAILY clonidine HCl 0.1 mg Tablet See Rx Instructions .ROUTE .COMPLEX Rx Instructions: Patient is to take 0.1mg by mouth TID starting 11/26/23 - ending 11/29/23, then patient is to take 0.1mg by mouth BID starting 11/30/23 - ending 12/01/23, then patient is to take 0.5mg by mouth BID starting 12/02/23 - ending 12/03/23 loperamide 2 mg Capsule 2 mg PO TID PRN (Reason: Diarrhea) clonazepam 2 mg Tablet See Rx Instructions .ROUTE .COMPLEX Rx Instructions: Please crush Patient is to take 2mg by mouth BID starting 11/26/23 - ending 11/28/23; then patient is to take 1mg by mouth TID starting 11/29/23 - ending 11/30/23; then patient is to take 1mg by mouth BID starting 12/01/23 - ending 12/02/23; then patient is to take 0.5mg by mouth BID starting 12/03/23 - ending 12/04/23; then patient is to take 0.5mg by mouth once daily starting 12/05/23 - ending 12/05/23 (one day only) vitamin B complex Tablet 1 tab PO DAILY folic acid 1 mg Tablet 1 mg PO DAILY mirtazapine 15 mg tablet 0 mg PO HS Rx Instructions: List from facility has this listed as pending. Original Directions: 15mg by mouth at bedtime ondansetron 4 mg tablet,disintegrating 4 mg translingual TID PRN (Reason: Nausea And Vomiting) ondansetron HCl (PF) 4 mg/2 mL Solution 4 mg IV TID PRN (Reason: Nausea And Vomiting) Rx Instructions: administer over at least 30 secs /preferably over 2-5 mins magnesium oxide 400 mg magnesium Tablet 400 mg PO DAILY Discharge Orders: Discharge Order (Routine); Ordered 11/30/23 Ordered By: Amanda Thao Admission Data Admit Date/Time: 11/27/23 16:21 Attending Provider: Lulu Chand Admit Provider: Jose Alberto Covarrubias [facility] Other Providers: Jose Alberto Covarrubias Other Interventions: Discharge Summary Assessment (RN) Last Done: 11/30/23 17:00 Supervising Physician Co-Signing Physician Notes Attending Physician Supervision Note: I independently interviewed and examined the patient and verified the noel history and physical, reviewed labs and image studies and agree with findings and care plan noted above.
[2023-11-30 12:53] LABS: 7-Aminoclonaz, Confirm 76 ng/mL (<25); Hydro-Alp Ur, GC/MS NEGATIVE ng/mL (<25); Hydroxyethylflurazepam, Conf NEGATIVE ng/mL (<50); Hydroxymidazolam Ur, GC/MS NEGATIVE ng/mL (<50); Hydroxytriazolam NEGATIVE ng/mL (<50); Lorazepam, Ur GC/MS NEGATIVE ng/mL (<50); Marijuana Quant, GCMS Urine 1259 ng/mL (<5); Nordiazepam, Confirm 121 ng/mL (<50); Norfentanyl, Urine >250.0 ng/mL (<0.5); Oxazepam Ur, GC/MS NEGATIVE ng/mL (<50); Temazepam, Confirm 51 ng/mL (<50); medMATCH Fentanyl, Urine DNR; medMATCH Norfentanyl, Urine DNR
[2023-11-30] MEDS: DICYCLOMINE HCL 10 MG CAP PO ONE (14:02)
--- NOTE | 2023-11-30 16:11 | Hospitalist Progress Note ---
Date of Service November 30, 2023 Assessment & Plan (1) Opiate withdrawal: (2) Alcohol withdrawal syndrome: (3) Depression: (4) Hematemesis: (5) Urine retention: (6) Hypokalemia: (7) Contamination of blood culture: Plan Opiate withdrawal: COWS 19 on admission. He is also going through alcohol withdrawal but given lacrimation, yawning, abdominal pain and diarrhea suspected a lot of his symptoms are opiate withdrawal [facility] Traditional buprenorphine initiation protocol - started with buprenorphine/naloxone (6/1.5 on 11/26) -Dosed on 11/27 4/ - Re- dose today 6/ 1.5 11/28 - Re- dose today 6/1.5mg Adjuvant therapy with clonidine and ondansetron for nausea Continue Protonix 40 mg daily Continue imodium as needed - COWS 2- Plan for discharge later today with PO tolerance Alcohol withdrawal syndrome: Lorazepam 1-3mg IV PRN, no Librium or phenobarbital due to concurrent opiate withdrawal ROMAIN- 0-5 in the last 12 hrs Depression: Continue mirtazapine 15mg PO HS Hematemesis: resolved IV pantoprazole d/c Zofran for nausea Protonix 40 mg daily Urine retention - resolved Suspect due to withdrawal Voiding spontaneously Hypokalemia - resolved Contamination of blood culture: blood cx - staph epidermidis methicillin resistant. one blood cx. based on protocol - likely contaminant. Fever and wbc elevation likely from withdrawal. No fever in the last 24 hrs. WBC has normalized leukocytosis- resolved Plan VTE Prophylaxis - low risk Diet - Regular diet Admission and Anticipated Discharge Date Admission Date: November 27, 2023 Subjective Seen this am. Awake. Refers abdominal pain and poor po with breakfast Review of Systems Review of Systems: as per HPI Physical Exam Constitutional: cooperative and + diaphoretic; no altered mental status Respiratory: normal respiratory effort, lungs clear to auscultation Cardiovascular: RRR, no murmur, no edema Gastrointestinal (Abdomen): normal bowel sounds, soft, nontender, no hepatosplenomegaly Results & Data Results & Data Vital Signs (Past 12 Hours) Vital Signs Temp Pulse Pulse Resp BP Pulse Ox O2 Del Method 11/30/23 15:26 37.2 C 104 H 18 133/78 99 Room Air 11/30/23 14:06 75 11/30/23 11:35 37.2 C 81 18 149/62 H 97 Room Air 11/30/23 07:59 63 11/30/23 07:35 37.3 C 75 18 157/92 H 98 Room Air 11/30/23 04:22 37.0 C 54 L 16 158/90 H 98 Room Air Resident Activity Tracking Resident Involvement: Resident Care Provided Care Provided: Adult Hospital Medicine (2) Alcohol withdrawal syndrome Complication of substance-induced condition: with delirium Qualified Code(s): F10.931 - Alcohol use, unspecified with withdrawal delirium (3) Depression Depression Type: unspecified Qualified Code(s): F32.A - Depression, unspecified (4) Hematemesis Nausea presence: unspecified Qualified Code(s): K92.0 - Hematemesis
[2023-11-30] MEDS ORDERED: DICYCLOMINE HCL 10 MG CAP PO SCH (21:00)
--- NOTE | 2023-12-01 13:38 | Coding Query ---
CODING QUERY To promote full compliance with coding requirements relating to patient care, provider participation is requested in all cases of pre coder uncertainty. Please assist us with the question(s) below: Clinical Indicators: H&P: * Opiate withdrawal * COWS 19 on admission. * Traditional buprenorphine initiation protocol - start with buprenorphine/naloxone 4/1mg * Adjuvant therapy with clonidine and ondansetron for nausea * IV fluids * Alcohol withdrawal syndrome * Lorazepam 1-3mg IV PRN, no Librium or phenobarbital due to concurrent opiate withdrawal * Per report he was given 5mg Valium and Zofran prior to arrival in the ER. * He was drinking a 5th of vodka a day and snorting 16 bags of Fentanyl a day for the last 3 months Coding Question(s): Based on the clinical indicators above are you able to further specify the opioid and alcohol withdrawal as: (x ) Opioid abuse with withdrawal ( ) Opioid dependence with withdrawal ( ) Other (please specify) ( ) Unable to determine. AND ( x) Alcohol abuse with withdrawal, uncomplicated ( ) Alcohol dependence with withdrawal, uncomplicated ( ) Other (please specify) ( ) Unable to determine. Thank you Marion Miner Principal Diagnosis: "that condition established after study, to be chiefly responsible for occasioning the admission of the patient to the hospital for care." Co-Existing Principal Diagnosis: "when two or more diagnoses equally meet the criteria for principal diagnosis as determined by the circumstances of admission, diagnostic work up, and/or therapy provided, and the Alphabetic Index, Tabular List, or another coding guideline does not provide sequencing direction, any one of the diagnoses may be sequenced first." "When the physician has documented what appears to be a current diagnosis in the body of the record, but has not included the diagnosis in the final diagnostic statement, the physician should be asked whether the diagnosis should be added." (Source Coding [facility] 2 QTR90. p3-4) [id number]
== END 2023-11-30 17:39 | DRG 897 ==
LOC: ED 10:19 → 2S 16:21 → SUATTDRO 16:21 → 2S 17:24